=== PATIENT | male | born 1970 | race Caucasian/White ===

== ENCOUNTER 2017-07-02 04:28 | Emergency (ER) | payer OTHER ==
[~2017-07-02] VITALS: Ht 185.4 cm; Wt 95.2 kg
[~2017-07-02 04:28] MED LIST: ACIDOPHILUS1 TAB PO; ADVAIR 100-501 EAC1 IH; ADVAIR 1001 DISK W/D PO; ALBUTEROL17 G1 IH; ALBUTEROL17 GM INH; ALBUTEROL17 GM NEB; AMOXICILLIN PO; BACTRIM DS TABL1 TA2; BENADRYL25 M1 PO; BYSTOLIC5 MG PO; DEBROX15 M1 OT; FAMOTIDINE PO; FIORICET 50-321 EACH PO; FLONASE16 GM; FLOXIN OTIC5 M1 AS; HYDROCHLOROTHIA25 MG PO; NILSTAT PO; PHENERGAN25 MG PO; VENTOLIN
[2017-07-02] MEDS ORDERED: METOPROLOL TAR25 MG DOB (04:37)
== END 2017-07-02 05:27 | disposition home or self-care (01) ==
LOC: SED 04:28
DX: I10 Essential (primary) hypertension (principal); J45.909 Unspecified asthma, uncomplicated; Z79.899 Other long term (current) drug therapy
CPT/HCPCS: 99283